=== PATIENT | male | born 1980 | race Caucasian/White ===

== ENCOUNTER 2023-11-09 09:48 | Emergency (ER) | payer MEDICAID ==
[~2023-11-09] VITALS: Ht 167.6 cm; Wt 69.0 kg
[2023-11-09 10:03] VITALS: O2SAT 100
[2023-11-09] MEDS ORDERED: NAPR-1176 MT (12:25)
[2023-11-09] MEDS ORDERED: LIDO700A15 TP (12:25)
[2023-11-09 12:42] VITALS: BP 144/67; PULSE 70; RESP 16; TEMP 98.4
== END 2023-11-09 12:47 | disposition home or self-care (01) ==
LOC: ER 09:48
DX: M25.571 Pain in right ankle and joints of right foot (principal)
CPT/HCPCS: 73630; 99283